=== PATIENT | female | born 1965 | race Caucasian/White ===

== ENCOUNTER 2017-03-16 14:24 | Emergency (ER) | payer OTHER ==
[~2017-03-16] VITALS: Ht 167.6 cm; Wt 70.8 kg
[2017-03-16 14:47] VITALS: BP 135/75
== END 2017-03-16 15:01 | disposition home or self-care (01) ==
LOC: ER 14:28
DX: Z02.89 Encounter for other administrative examinations (principal); F10.10 Alcohol abuse, uncomplicated
CPT/HCPCS: A4606; Z7610